=== PATIENT | male | born 1955 | race Caucasian/White ===

== ENCOUNTER 2025-04-19 11:49 | Outpatient (CLI) | payer MEDICARE, BC, SELFPAY ==
[2025-04-19 12:08] VITALS: BP 126/67; PULSE 67; RESP 16; TEMP 36.6; O2SAT 98
--- NOTE | 2025-04-19 12:58 | PM.PROC ---
Procedure Note Time Seen by Provider: 13:00 Date Seen: 04/19/25 Provider Contact Time: 14:00 Date of procedure: 04/19/25 Will [facility] bill your pro fee for this procedure?: Yes Procedure: CRYONEUROLYSIS TREATMENT REPORT DATE OF PROCEDURE: 04/19/2025 REFERRING PROVIDER: Agus Bettencourt TREATMENT PROVIDER: Pavan Farris PREOPERATIVE DIAGNOSIS: Right knee osteoarthritis POSTOPERATIVE DIAGNOSIS: Right knee osteoarthritis? PROCEDURE: Cryoneurolysis of Multiple Sensory Nerves of the Knee ANESTHESIA: Local INDICATIONS: The patient is a very pleasant 70-year-old male with primary osteoarthritis involving the right knee who presents today for cryoneurolysis of multiple sensory nerves to the knee for severe knee pain.?Patient medical history was reviewed. The risks, benefits, treatment alternatives, and complications were discussed with the patient, including but not limited to bleeding, infection, nerve or tissue damage.?Informed consent was obtained. ? PRE-TREATMENT MOTOR ASSESSMENT/PAIN SCORE: Patient was able to demonstrate intact gross motor function with plantarflexion, dorsiflexion, adduction, abduction, hip flexion, and extension of the lower extremity.?Pre-treatment pain score of 8 out of 10 in the right knee. DESCRIPTION OF PROCEDURE: After obtaining informed consent, the patient was brought back to the treatment room and positioned supine on the table.?The right lower extremity was prepped with Chlorhexadine.?We began the procedure by performing our procedural pause.?Once this was completed and verified to be accurate, I began the procedure by identifying the nerves with the use of bedside ultrasound.?After the nerves were identified, the skin was marked and, using 1% lidocaine plain, the area of the nerves were anesthetized. ? After the anesthetic was administered, the Smart Tip 2190 cryoneurolysis needle was inserted into the treatment sites using ultrasound guidance.?Treatment was then initiated on the right lower extremity with the following nerves treated: Superior, superior medial, superior lateral, inferior medial genicular nerves. At the termination of the treatment, the cryoneurolysis needle was removed with the patient's skin cleansed and Band-Aids an Yann bandage applied. Patient tolerated the procedure without any incident or concern.? Patient was then instructed to stand, mobilize the joint, and was examined to ensure gross motor skills were intact. COMPLICATIONS: None POST-TREATMENT PAIN SCORE: 0 out of 10. Right knee DISPOSITION: Discharge instructions were given to the patient with education on the post-procedure expectations. Patient was instructed to call the Ortho clinic with any post-procedure concerns or questions.
[2025-04-19 13:43] VITALS: BP 143/61; PULSE 63; RESP 16; O2SAT 97
== END 2025-04-19 13:45 | disposition home or self-care (01) ==
LOC: OP CLINIC 11:51
PROVIDERS: PCP Family Medicine; Visit Provider Nurse Anesthetist, Certified Registered
DX: M17.11 Unilateral primary osteoarthritis, right knee (principal)
CPT/HCPCS: 64640; 76942; C9809

== ENCOUNTER 2025-05-04 06:35 | Day surgery (SDC) | payer MEDICARE, BC, SELFPAY ==
[2025-05-04] VITALS (19 sets, daily range): BP systolic 92–127; BP diastolic 49–77; PULSE 57–68; RESP 12–16; TEMP 36.5–36.7; O2SAT 90–98; BMI 46.7
[2025-05-04] MEDS: LACTATED RINGERS 1000 ML 1,000 ML 100 ML IV ×2 (07:50→09:45)
[2025-05-04] MEDS: SODIUM CHLORIDE 0.9 % (FLUSH) 10 ML SYRINGE IVF (07:50)
[2025-05-04] MEDS: CELECOXIB 200 MG CAPSULE PO (08:00)
[2025-05-04] MEDS: ACETAMINOPHEN 500 MG TABLET 1000 MG PO (08:00)
[2025-05-04] MEDS: OXYCODONE (CR) 10 MG TAB.ER.12H PO (08:00)
[2025-05-04] MEDS: MIDAZOLAM HCL 1 MG/ML inj IVP (08:36)
--- NOTE | 2025-05-04 08:37 | SUR.PREOP ---
TIME?OUT:?0834 PT/RN/MDA?VERIFICATION?OF?SURGICAL?SITE,?PROCEDURE,?AND?CONSENT OBTAINED?PRIOR?TO?INVASIVE?PROCEDURE. all in agreement
[2025-05-04] MEDS: TRANEXAMIC ACID 100 MG/ML INJ 1000 MG IV (09:30)
--- NOTE | 2025-05-04 11:36 | P.ANES_ITS ---
Anesthesia Charges Start Date/Time Anesthesia Start Date: 05/04/25 Anesthesia Start Time: 09:04 Stop Date/Time Anesthesia Stop Date: 05/04/25 Anesthesia Stop Time: 11:36 Coding CPT Codes CPT Codes: ANESTH KNEE ARTHROPLASTY - 09074 ([id number]) P3 - PATIENT W/SEVERE SYS DISEASE, QK - DIRECTOR OF INSTITUTIONAL RESEARCH 2-4 CNCRNT ANES PROC, QX - ROAD MARKER SVC W/ MD MED DIRECTION
--- NOTE | 2025-05-04 11:36 | W.ANESCHARGE ---
Anesthesia Charges Start Date/Time Anesthesia Start Date: 05/04/25 Anesthesia Start Time: 09:04 Stop Date/Time Anesthesia Stop Date: 05/04/25 Anesthesia Stop Time: 11:36 Coding CPT Codes CPT Codes: ANESTH KNEE ARTHROPLASTY - 20483 ([id number]) P3 - PATIENT W/SEVERE SYS DISEASE, QK - REGIONAL MARKETING MANAGER 2-4 CNCRNT ANES PROC, QX - CIRCUIT BOARD ASSEMBLER SVC W/ MD MED DIRECTION
--- NOTE | 2025-05-04 11:49 | CRLHL7_ITS ---
For Patients: As a result of the Cures Act, medical imaging exams and procedure reports are released immediately into your electronic medical record. You may view this report before your referring provider. If you have questions, please contact your health care provider. Indication: Postop Technique: Two views right knee Findings/Impression: Hardware from a right total knee arthroplasty is in satisfactory position. Bone alignment is normal. No sign of acute fracture. Postop changes are within normal limits. Dictated by Uziel Mendez MD @ 05/04/2025 12:47:01 PM (Electronically Signed)
--- NOTE | 2025-05-04 11:49 | P.ORPRC_ITS ---
Procedure Note Date of procedure: 05/04/25 Procedure: PREOPERATIVE DIAGNOSIS: Right knee osteoarthritis POSTOPERATIVE DIAGNOSIS: Right knee osteoarthritis NAME OF OPERATION: Right total knee arthroplasty SURGEON: Gurpreet Bettencourt MD HEAD GAUGE UNIT OPERATOR: DAVID Roberts ANESTHESIA: Spinal ESTIMATED BLOOD LOSS: 0 mL COMPLICATIONS: None SPECIMENS: None DRAINS: None PREOPERATIVE ANTIBIOTICS: Ancef 3 g, antibiotic impregnated cement IMPLANTS: 1. J&J Attune revision CRS #6 posterior stabilized femur, 14 mm x 50 mm cemented stem 2. Revision CRS # 7 fixed-bearing tibia, 14 mm x 50 mm cemented stem 3. #6 posterior stabilized, 10 mm fixed-bearing polyethylene 4. 41 patella INDICATIONS: The patient is a 70-year-old with a longstanding history of severe, unrelenting right knee pain secondary to end-stage (grade IV) right knee osteoarthritis. Despite appropriate nonoperative management, including activity modification, anti-inflammatories, [id number] pain medication, bracing, physical therapy, and injections they continue to have pain and disability. Operative intervention was offered. The risks, benefits and expected outcomes were discussed in detail. These included but were not limited to: Infection, bleeding, injury to blood vessel or nerve, venous thromboembolism. All questions were answered to their satisfaction. Use of an paraprofessional education assistant was necessary throughout the case for patient positioning and safety, soft tissue retraction, and closure. A modifier 22 should be added to this case. The patient weighs 135 kg with a BMI of 47 this made the exposure difficult. To reduce the risk of aseptic loosening and infection we used stemmed components and antibiotic cement. These factors added time and cost to complete the case. PROCEDURE: Spinal anesthesia was administered. The patient was placed supine on the operating table. The paraprofessional education assistant made sure the patient was positioned appropriately. The lower extremity was prepped and draped in the usual sterile fashion. The limb was exsanguinated with the Clyde bandage. The pneumatic tourniquet was inflated to 250 mmHg. A standard anterior incision was made with the knee in flexion. Subcutaneous dissection was sharply taken through fascial layer #1. Full-thickness medial and lateral flaps were elevated. The paraprofessional education assistant retracted the soft tissues and protected them throughout the case. A standard subvastus approach was made. The patella was subluxed. The infrapatellar fat pad was debrided. The menisci and cruciate ligaments were sharply d?brided. Marginal osteophytes were d?brided with the rongeur. The drill was used to penetrate the femoral canal. The intramedullary femoral guide was placed for a 5-degree valgus cut, removing 10 mm off the distal femur. The saw was used to make the cut. Whitesides line and the trans epicondylar axis were marked. The femoral sizing guide was pinned onto the distal femur. Three degrees of external rotation nicely parallels the transepicondylar axis. Pins were placed for posterior referencing. The four-in-one cutting guide was pinned onto the distal femur. The anterior, posterior, and chamfer cuts were made. The paraprofessional education assistant protected the collateral ligaments. The revision trial was placed. The box cuts were made. The drill was used x2. The stemmed, boxed trial was placed and was an excellent fit. Attention was then turned to the proximal tibia. The intramedullary tibial guide was placed for a neutral varus/valgus cut with 3 degrees of posterior slope, removing 2 mm based off the medial tibial surface. The paraprofessional education assistant protected the collateral ligaments and the neurovascular bundle. The saw was used to make the cut. Trial components were placed. The knee was nicely balanced in both flexion and extension. The trial components were removed. The tray was placed in appropriate rotation, parallel to our tibial cutting pins. It was pinned by the paraprofessional education assistant and the drill x2 was used. The stemmed tibial trial was placed. The punch was used. The tray was removed. The punch was used again. Attention was then turned to the patella. Wainwright patellar thickness was 23.5 mm. The lobster claw resection guide was used with the 9.5 mm namrata. The saw was used to make the cut. Drill holes were made by the paraprofessional education assistant. The trial was placed and was an excellent fit. Cancellous surfaces were irrigated with pulse lavage and thoroughly dried by the paraprofessional education assistant. We cemented the tibial component, then the femoral component. We impacted the 10 mm polyethylene onto the tibial tray. The knee was brought into full extension. We then cemented the patellar component. Excessive cement was removed. The cement was allowed to harden. The knee was taken through a range of motion and was found to be nicely balanced in both flexion and extension. The patella tracks centrally. The paraprofessional education assistant did a three minute dilute Betadine solution soak. The paraprofessional education assistant irrigated the wound with 3 liters of normal saline via pulse lavage. The paraprofessional education assistant reapproximated the extensor mechanism with #1 Vicryl in an interrupted [id number]-[id number] fashion. The paraprofessional education assistant then ran the extensor mechanism with a #1 PDO Stratafix. The paraprofessional education assistant closed the subcutaneous tissues with a 3-0 Stratafix and the skin with a running 3-0 Stratafix in a subcuticular fashion. Glue was used to seal the skin. The paraprofessional education assistant placed a dry dressing. Sponge and needle counts were correct x2. The patient tolerated the procedure well. There were no apparent complications. They were carefully transferred to the hospital bed and taken to the postanesthesia care unit in satisfactory condition. PLAN: The patient will be mobilized with physical therapy. Aspirin will be used for DVT prophylaxis. They will be discharged to home once medically appropriate.
--- NOTE | 2025-05-04 12:39 | P.NB_ITS ---
Nerve Block Nerve Block Time Seen by Provider: 08:35 Date Seen: 05/04/25 Type of block requested by surgeon for post-operative analgesia: adductor canal Side: right Time out performed: Yes Verification of patient name: Yes Verification of date of : Yes Site marking: site marked Name of person performing procedure: Brenton Continuous monitoring Was continuous monitoring of O2 sat, B/P, groundwater monitoring technician, recorded every 15 minutes?: Yes Procedure Checklist: sterile prep, needles and gloves Ultrasound guided. Images saved: Yes Medications given in 5ml increments after negative aspiration: Marcaine %: 0.25 mL: 15 Needle gauge: 20 Precedex (mcg): 25 Patient tolerated procedure well: Yes Block Charges Block Charge (with Pro Fee): Femoral Nerve Use of Ultrasound Machine for Block: Yes- US Guidance/pain block
--- NOTE | 2025-05-04 12:39 | P.NB_ITS ---
Nerve Block Nerve Block Time Seen by Provider: 08:35 Date Seen: 05/04/25 Type of block requested by surgeon for post-operative analgesia: geniculars Side: right Time out performed: Yes Verification of patient name: Yes Verification of date of : Yes Site marking: site marked Name of person performing procedure: Brenton Continuous monitoring Was continuous monitoring of O2 sat, B/P, threat monitoring analyst, recorded every 15 minutes?: Yes Procedure Checklist: sterile prep, needles and gloves Ultrasound guided. Images saved: Yes Medications given in 5ml increments after negative aspiration: Marcaine %: 0.25 mL: 9 Needle gauge: 25 Patient tolerated procedure well: Yes Block Charges Block Charge (with Pro Fee): Genicular Nerve Block
--- NOTE | 2025-05-04 12:39 | P.ANES_ITS ---
Anesthesia Charges Start Date/Time Anesthesia Start Date: 05/04/25 Anesthesia Start Time: 09:04 Stop Date/Time Anesthesia Stop Date: 05/04/25 Anesthesia Stop Time: 11:36 Coding CPT Codes CPT Codes: ANESTH KNEE ARTHROPLASTY - 09224 ([id number]) QK - COVERING AND LINING SUPERVISOR 2-4 CNCRNT ANES PROC, QX - DRYING FRAME OPERATOR SVC W/ MD MED DIRECTION, P3 - PATIENT W/SEVERE SYS DISEASE
--- NOTE | 2025-05-04 12:39 | W.ANESCHARGE ---
Anesthesia Charges Start Date/Time Anesthesia Start Date: 05/04/25 Anesthesia Start Time: 09:04 Stop Date/Time Anesthesia Stop Date: 05/04/25 Anesthesia Stop Time: 11:36 Coding CPT Codes CPT Codes: ANESTH KNEE ARTHROPLASTY - 73056 ([id number]) QK - COMPUTER AIDED DESIGN DRAFTER 2-4 CNCRNT ANES PROC, QX - GRAPPLE CREW LEADER SVC W/ MD MED DIRECTION, P3 - PATIENT W/SEVERE SYS DISEASE
--- NOTE | 2025-05-04 14:38 | SUR.PHASEII ---
reviewed d/c instructions with and . All questions answered. pt rating pain 5/10 tolerable. Pt tolerated toast and pudding. Pt drank 3 cups of cranberry juice and 2 cups of water.
== END 2025-05-04 16:00 | disposition home or self-care (01) ==
LOC: OR 06:38
PROVIDERS: PCP Family Medicine; Visit Provider Orthopaedic Surgery
PROC: (CPT 27447; principal; 2025-05-04 08:45)
DX: M17.11 Unilateral primary osteoarthritis, right knee (principal); G89.18 Other acute postprocedural pain; I10 Essential (primary) hypertension; E11.9 Type 2 diabetes mellitus without complications; G47.30 Sleep apnea, unspecified; E66.01 Morbid (severe) obesity due to excess calories; Z68.42 Body mass index [BMI] 45.0-49.9, adult
CPT/HCPCS: 27447; 01402; 64447; 64454; 73560; 76942; 82962; 97110; 97116; 97161; 97530; A9270; C1776; J0690; J2250; J2405; J2704; J3010; J3490; J7120